=== PATIENT | male | born 1965 | race Hispanic/Latino ===

== ENCOUNTER 2023-03-03 19:51 | Emergency (ER) | payer BC, OTHER ==
[~2023-03-03] VITALS: Ht 175.3 cm; Wt 113.9 kg
[2023-03-03] MEDS ORDERED: 0.9%NACL 1000ML 1,000 ML IV SCH (20:30)
[2023-03-03] MEDS ORDERED: KETOROLAC 30MG VIAL (30MG/ML) IVP ONE (20:30)
[2023-03-03 20:33] LABS: BASOPHILS % (AUTO) 0.5 % (0.0-5.0); EOSINOPHILS % (AUTO) 1.3 % (0.0-8.0); HEMATOCRIT 43.8 % (42-54); LYMPHOCYTES % (AUTO) 21.3 % (21.0-51.0); MEAN CORPUSCULAR HEMOGLOBIN 30.9 pg (27.0-33.0); MEAN CORPUSCULAR HGB CONC 34.9 g/dL (32.0-36.0); MEAN CORPUSCULAR VOLUME 88.5 fL (79-99); MONOCYTES % (AUTO) 8.3 % (3.0-13.0); NEUTROPHILS % (AUTO) 68.3 % (40.0-77.0); PLATELET COUNT (AUTO) 228 K/uL (130-400); RED BLOOD CELL COUNT(AUTO) 4.95 MIL/uL (4.50-6.20); RED CELL DISTRIBUTION WIDTH 12.4 % (11.0-15.5); WHITE BLOOD COUNT (AUTO) 8.7 K/uL (4.8-10.8)
[2023-03-03 20:38] LABS: APPEARANCE,URINE CLEAR (CLEAR); BILIRUBIN,URINE NEGATIVE (NEGATIVE); COLOR,URINE LIGHT-YELLOW (YELLOW); GLUCOSE, URINE (UA) >=1000 mg/dL (NEGATIVE); KETONES,URINE NEGATIVE (NEGATIVE); LEUKOCYTE ESTERASE ,URINE NEGATIVE Leu/uL (NEGATIVE); NITRATE,URINE NEGATIVE (NEGATIVE); OCCULT BLOOD,URINE SMALL (NEGATIVE); PROTEIN,URINE NEGATIVE (NEGATIVE); UROBILINOGEN,URINE 0.2 mg/dL (0.2-1.0)
[2023-03-03 21:14] LABS: CREATININE 0.9 mg/dL (0.5-1.5); POTASSIUM 3.7 mmol/L (3.5-5.1)
[2023-03-03 21:18] LABS: ALBUMIN 3.4 g/dL (3.5-5.0); TOTAL PROTEIN, SERUM 6.8 g/dL (6.0-8.3)
[2023-03-03] MEDS ORDERED: ONDANSETRON 4MG INJ IVP ONE (21:30)
[2023-03-03] MEDS ORDERED: LIDOCAINE HCL-MPF 2% 5ML VIAL ONE (21:33)
[2023-03-03] MEDS ORDERED: IBUP-1493 PO (22:13)
[2023-03-03 22:18] LABS: MUCUS,URINE RARE LPF (None Seen); SQUAMOUS EPITHELIAL CELL,UR RARE /HPF (0-2)
[2023-03-03 22:29] VITALS: BP 159/85
== END 2023-03-03 22:29 | disposition home or self-care (01) ==
LOC: EDH 19:51
DX: N20.0 Calculus of kidney (principal); I10 Essential (primary) hypertension; E11.9 Type 2 diabetes mellitus without complications; E78.00 Pure hypercholesterolemia, unspecified; Z90.49 Acquired absence of other specified parts of digestive tract; Z87.442 Personal history of urinary calculi; Z98.890 Other specified postprocedural states
CPT/HCPCS: 99285; 74176; 96374; 96361; 96375; 80053; 85025; 81001; 36415; J7030; J2405; J1885; J3490

== ENCOUNTER 2023-04-12 19:41 | Emergency (ER) | payer OTHER ==
[~2023-04-12] VITALS: Ht 175.3 cm; Wt 113.4 kg
[~2023-04-12 19:41] MED LIST: IBUP-1493 PO
[2023-04-12 20:58] VITALS: BP 154/87
[2023-04-12] MEDS ORDERED: CEPH500B PO (23:30)
== END 2023-04-12 23:58 | disposition home or self-care (01) ==
LOC: EDH 19:41
DX: S90.851A Superficial foreign body, right foot, initial encounter (principal); E11.9 Type 2 diabetes mellitus without complications; E78.00 Pure hypercholesterolemia, unspecified; I10 Essential (primary) hypertension; Z79.1 Long term (current) use of non-steroidal anti-inflammatories (NSAID); Z90.49 Acquired absence of other specified parts of digestive tract; W45.8XXA Other foreign body or object entering through skin, initial encounter; Y93.89 Activity, other specified; Y92.89 Other specified places as the place of occurrence of the external cause; Y99.8 Other external cause status
CPT/HCPCS: 73630

== ENCOUNTER 2023-07-31 07:00 | Day surgery (SDC) | payer OTHER ==
[~2023-07-31] VITALS: Ht 175.3 cm; Wt 111.2 kg
[~2023-07-31 07:00] MED LIST changes: +CEPH500B PO
[2023-07-31 09:40] VITALS: BP 113/80; PULSE 91; RESP 16
[2023-07-31] MEDS ORDERED: SEMA0.258 SQ (10:50)
[2023-07-31] MEDS ORDERED: GLYB5TAB8 PO (10:50)
[2023-07-31] MEDS ORDERED: AMLO-258 PO (10:50)
[2023-07-31] MEDS ORDERED: LISI40TA9 PO (10:50)
[2023-07-31] MEDS ORDERED: METF-446 PO (10:50)
[2023-07-31] MEDS ORDERED: PRAV40TA3 PO (10:50)
[2023-07-31] MEDS ORDERED: PROPOFOL 10 MG/ML 20ML VIAL IV ONE (12:21)
[2023-07-31] MEDS ORDERED: LIDOCAINE PF 100MG/5ML (2%) SYRINGE 5ML ONE (12:22)
== END 2023-07-31 13:09 | disposition home or self-care (01) ==
LOC: DAH 07:00 → ENDO 07:00
PROVIDERS: ATTEND Internal Medicine Gastroenterology
DX: Z12.11 Encounter for screening for malignant neoplasm of colon (principal); K64.1 Second degree hemorrhoids; I10 Essential (primary) hypertension; E11.9 Type 2 diabetes mellitus without complications; E66.9 Obesity, unspecified; E78.5 Hyperlipidemia, unspecified; F17.200 Nicotine dependence, unspecified, uncomplicated; Z98.890 Other specified postprocedural states; Z90.49 Acquired absence of other specified parts of digestive tract; Z82.49 Family history of ischemic heart disease and other diseases of the circulatory system; Z83.3 Family history of diabetes mellitus; Z83.438 Family history of other disorder of lipoprotein metabolism and other lipidemia; Z82.3 Family history of stroke; Z72.89 Other problems related to lifestyle; Z68.37 Body mass index [BMI] 37.0-37.9, adult
CPT/HCPCS: 82948; 45378; J2001; J2704; A4620; A4215 ×2; A7002; A4222; A4221; A4663; J7030; A4606; J3490